=== PATIENT | female | born 1945 | race Caucasian/White ===

== ENCOUNTER → 2017-02-13 | Outpatient (CLI) | payer MEDICARE, BC ==
[~2017-02-13] MED LIST: AMLOD-VALSA-HC1 EAC4 PO; ASPIRIN81 M2 PO; CALCIUM CITRAT1 EAC6 PO; CLOPIDOGREL75 MG PO; COREG6.25 M1; CYMBALTA PO; FUROSEMIDE40 MG PO; HYALURONIC ACI1 EACH PO; KRILL OIL 1,001 EACH PO; LANTUS100 UNITS/; PIOGLITAZONE30 MG PO; ROSUVASTATIN CA40 MG; TRULICITY0.75 MG/0.; VITAMIN D250000 UNIT PO
--- NOTE | ~2017-02-13 | EKG ---
PATIENT: GEORGES ARGUETA UNIT #: [id number] Ventricular Rate: 81 BPM Atrial Rate: 81 BPM P-R Interval: 188 ms QRS Duration: 86 ms Q-T Interval: 388 ms QTC Calculation(Bezet): 450 ms P Wales: 46 degrees Calculated R Wales: 40 degrees Calculated T Wales: 10 degrees Diagnosis Line: Normal sinus rhythm Diagnosis Line: Cannot rule out Anteroseptal infarct , age Diagnosis Line: undetermined Diagnosis Line: Abnormal ECG Diagnosis Line: No previous ECGs available Diagnosis Line: Confirmed by ASAF PEREZ MD ([id number]) on Diagnosis Line: 02/14/2017 8:29:05 AM INTERPRETING MD: CHRIS FONSECA
[2017-02-13 10:37] LABS: HEMOGLOBIN 13.4 gm/dL (12.0-16.0); MEAN CELL VOLUME 86.9 FL (83-96); MEAN CORPUSCULAR HEMOGLOBIN 29.1 PG (28-34); MEAN CORPUSCULAR HGB CONC 33.5 g/dL (30-36); MEAN PLATELET VOLUME 8.6 FL (6.5-11.5); RED BLOOD COUNT 4.6 X10e (3.90-5.30); RED CELL DISTRIBUTION WIDTH 13.8 % (11.0-15.5); WHITE BLOOD COUNT 9.6 X10e3 (4.0-10.5)
[2017-02-13 11:14] LABS: BUN/CREATININE RATIO 21.66; CALCIUM SERUM 9.8 mg/dL (8.4-10.2); CREATININE SERUM 1.8 mg/dL (0.6-1.4); GLOM FILT RATE Estimated 28.2 mL/min (>60); POTASSIUM 3.3 mmol/L (3.5-5.1)
== END | disposition home or self-care (01) ==
LOC: EDSTATUS 09:00 → CAMB 09:00
PROVIDERS: Orthopaedic Surgery
DX: M19.071 Primary osteoarthritis, right ankle and foot (principal)
CPT/HCPCS: 36415; 80048; 85027; 93005

== ENCOUNTER 2017-03-06 05:40 | Inpatient (IN) | payer MEDICARE, BC ==
[~2017-03-06] VITALS: Ht 170.2 cm; Wt 106.4 kg
--- NOTE | ~2017-03-06 | HP ---
Unit #: [id number] #: [id number] Patient: GEORGES ARGUETA [id number] [address] [address] [id number] MR#: [id number] NAME: GEORGES ARGUETA ROOM: Age: Sex: F Admission Date: 03/06/2017 : 1945 Attending Physician: Humphrey Redd M.D. Primary Care Physician: Damari Lee HISTORY AND PHYSICAL DATE OF ANTICIPATED ADMISSION/PROCEDURE March 06, 2017 CHIEF COMPLAINT Right ankle pain. HISTORY OF PRESENT ILLNESS The patient is a 71-year-old female with increasing right ankle pain over the past five years. She has undergone previous right ankle cyst removal done elsewhere. The patient has been treated with conservative care to include an AFO brace. Her radiographs show significant joint space loss with end-stage arthritis. She is therefore admitted for right ankle fusion using an anterior plate and proximal tibial bone graft. PAST MEDICAL HISTORY 1. Insulin-dependent diabetes. 2. Obesity. 3. Hyperlipidemia. 4. Hypertension. 5. Sleep apnea. 6. Arthritis. 7. Cataracts. 8. Coronary artery disease. PAST SURGICAL HISTORY 1. Right ankle cyst excision. 2. Coronary artery stent. 3. Hysterectomy. 4. Tonsillectomy. 5. Cataract surgery. HOME MEDICATIONS 1. Insulin. 2. Carvedilol. 3. Lasix. 4. Rosuvastatin. 5. Vitamin D. 6. Plavix. 7. Duloxetine. 8. Trulicity. 9. Flaxseed oil. 10. Hyaluronic acid. 11. Amlodipine. 12. Hydrochlorothiazide. Unit #: [id number] #: [id number] Patient: GEORGES ARGUETA ALLERGIES None. SOCIAL HISTORY The patient quit smoking 25 years ago. She has an occasional social alcoholic drink. She denies illicit drug use. She is . PHYSICAL EXAMINATION GENERAL: This is an obese female in no acute distress. HEENT: Pharynx is clear. NECK: Supple without masses. HEART: Regular sinus rhythm without murmurs or gallops. LUNGS: Clear. ABDOMEN: Soft and nontender without masses or organomegaly. EXTREMITIES: Evaluation of the right ankle shows an anteromedial right ankle scar measuring 4 cm. The rear foot is in 10 degrees of varus. Right ankle dorsiflexion is -5 degrees and plantar flexion 30 degrees. Subtalar motion is 5 degrees inversion and eversion. First MTP joint motion is dorsiflexion 40 degrees and plantar flexion is 15 degrees. Pulses are intact. Sensation is normal. Motor exam is normal. The patient has tenderness over the anterior aspect of the tibiotalar joint. DIAGNOSTIC STUDIES IMAGING: Standing x-rays of the right ankle show tibiotalar varus with end-stage arthritis and complete joint space loss. ADMITTING DIAGNOSIS Right ankle arthritis with varus deformity. PLAN The patient will undergo right arthroscopic ankle procedure using an anterior plate and proximal tibial bone graft. This procedure was described in detail along with the risks of bleeding, infection, nerve damage, need for further surgery in the future, nonunion, malunion, prolonged recovery time, deep venous thrombosis, pulmonary embolism, anesthetic complications, and development of arthritis in adjacent joints. She understands the above risks and agrees to proceed. Dictated by Tami Lima/lacie TD: 03/05/2017 20:26 JOB #: [id number] HISTORY AND PHYSICAL Page 1 of 1 X Blanca Redd MD X HISTORY AND PHYSICAL
--- NOTE | ~2017-03-06 | CR151 ---
[facility] A Service of [facility] RADIOLOGY TEXT RESULTS PATIENT: GEORGES ARGUETA LOCATION: C4B 453-01 : [birth year] UNIT #: [id number] AGE: [address]: Blanca Redd MD SEX: F ORDER DR: [id number] [facility] [address] [place], [place] [address] [id number] MR#: [id number] Acc #: [id number] NAME: GEORGES ARGUETA : 1945 SEX: F STUDY DATE/TIME: 03/07/2017 14:06 UNIT: [facility] ROOM: [facility] STUDY DESCRIPTION: CR Hip Min 2 Views Rt Attending Physician: Humphrey Redd M.D. Ordering Physician: Humphrey Redd M.D. Primary Care Physician: Damari Lee MEDICAL IMAGING REPORT This report is preliminary unless electronic signature is present EXAM Right hip and pelvis, 03/07. INDICATIONS Right hip pain after falling today. FINDINGS AP pelvis was obtained in addition to a frog-leg right hip. There is no fracture or dislocation. Femoral heads are normal without evidence of osteonecrosis. IMPRESSION Negative pelvis and right hip. Dictated by... Raman Molina Jr., M.D. THIS IS AN ELECTRONICALLY VERIFIED REPORT Raman Molina Jr., M.D. at 03/09/2017 2:28 PM LIZBETH/daniel TD: 03/07/2017 21:05 JOB #: [id number] MEDICAL IMAGING REPORT Page 1 of 1 COPY
--- NOTE | ~2017-03-06 | DS ---
Unit #: [id number] #: [id number] Patient: GEORGES ARGUETA [id number] [address] [place], [place] [address] [id number] I MR#: [id number] NAME: GEORGES ARGUETA ROOM: 453 Age: 71 Sex: F Admission Date: 03/06/2017 : 1945 Discharge Date: 03/08/2017 Attending Physician: Humphrey Redd M.D. Primary Care Physician: Damari Lee DISCHARGE SUMMARY CHIEF COMPLAINT Right ankle pain. HISTORY OF PRESENT ILLNESS This patient is a 71-year-old female with worsening right ankle pain over the past 5 years. She has failed conservative care with bracing. She has pain with activities of daily living. She is, therefore, admitted for ankle fusion. HOSPITAL COURSE The patient was taken to the operating room on the date of admission where she underwent right ankle fusion through an anterior longitudinal incision using an anterior plate and proximal tibial bone graft. She had a stable postoperative course. She did have a fall on her first postoperative day, but radiographs of her right hip were normal. She was seen by physical therapy on a daily basis and instructed on how to remain nonweightbearing on her affected side. Her dressing remained clean, dry and intact and was left intact. She was ready for discharge on the second postoperative day. The patient will be sent to rehab because she does not have help at home, and because of her obesity, she has difficulty remaining nonweightbearing on her right leg. FINAL DIAGNOSIS Right ankle degenerative arthritis. DISPOSITION/RECOMMENDATIONS 1. The patient is discharged to rehab for further physical and occupational therapy. She will remain strictly nonweightbearing on her affected right leg for a total of 3 months. Keep the dressing clean, dry and intact. Do not change the dressing unless instructed by Dr. Redd. If there is a problem with a dressing, please call Dr. Redd at for instructions. Continue ice and elevation of the right lower extremity. 2. Discharge medications: Cymbalta 60 mg p.o. q.h.s., pioglitazone 30 mg p.o. daily, carvedilol 6.25 mg p.o. b.i.d., amlodipine/valsartan/Hydrochlorothiazide 10/320/25 mg 1 p.o. daily, rosuvastatin 40 mg p.o. q.h.s., Trulicity 0.25 mg injected every , glargine insulin 80 units subcutaneously b.i.d., aspirin 81 mg p.o. daily, hyaluronic acid 40 mg capsule 100 mg p.o. daily, Plavix 75 mg p.o. daily, calcium citrate, vitamin D 1 p.o. daily, krill oil 1,000 mg softgel 1 p.o. daily, vitamin D2 - 50,000 units p.o. twice a week, Percocet 5/325 mg 1 or 2 p.o. q.4 hours p.r.n. pain. 3. Follow up in the office with Dr. Redd in 10-14 days for Unit #: [id number] #: [id number] Patient: BEAVEN,GEORGES dressing change, suture removal and application of a cast. Dictated by.Tami Ledesma/kenna TD: 03/08/2017 12:56 JOB #: [id number] DISCHARGE SUMMARY Page 1 of 1 X Blanca Redd MD X DISCHARGE SUMMARY
--- NOTE | ~2017-03-06 | CO ---
Unit #: [id number] #: [id number] Patient: GEORGES ARGUETA [id number] [address] [place], [place] [address] [id number] I MR#: [id number] NAME: GEORGES ARGUETA ROOM: 453 Age: 71 Sex: F Admission Date: 03/06/2017 : 1945 Attending Physician: Humphrey Redd M.D. Primary Care Physician: Damari Lee CONSULTATION REPORT REASON FOR CONSULTATION Medical management. HISTORY OF PRESENT ILLNESS The patient is a 71-year-old female with history of right ankle arthritis, failed conservative management and underwent right ankle fusion earlier today. The medicine consult has been placed for management of medical problems, including diabetes. The patient has history of diabetes for 10 years and has been on insulin for the last 5 years. The patient's hemoglobin A1C is 7.1, which was done last Sunday. The patient's blood sugars are under control at home. The patient's blood sugars were low this morning, as the patient was NPO. Then, the patient's blood sugar is now coming up to the 90s. Denies any fever. Denies any chills. Denies any nausea, vomiting. PAST MEDICAL HISTORY History of diabetes mellitus type 2, obesity, hyperlipidemia, hypertension, sleep apnea, arthritis, cataracts, coronary artery disease. PAST SURGICAL HISTORY Right ankle cyst excision, right ankle fusion, coronary artery stent, hysterectomy, tonsillectomy, cataract surgery. HOME MEDICATIONS The patient is on Crestor, amlodipine, valsartan, Hydrochlorothiazide, Lantus, Trulicity, pioglitazone, Coreg, vitamin, Cymbalta, Plavix, furosemide, hyaluronic acid, calcium and aspirin. ALLERGIES None. SOCIAL HISTORY The patient quit smoking 25 years ago. She has occasional social alcohol drink. She denies any illicit drug abuse. REVIEW OF SYSTEMS Negative for chest pain. Negative for nausea or vomiting. Negative for abdominal pain. Negative for headaches. Positive for ankle pain. Other systems have been reviewed, and all other systems were negative. FAMILY HISTORY Reviewed and none. PHYSICAL EXAMINATION Unit #: [id number] #: [id number] Patient: GEORGES ARGUETA GENERAL: The patient is lying in the bed, not in acute distress. VITALS: Temperature is afebrile, pulse 81, respiratory rate 15, blood pressure 111/70. HEENT: Head atraumatic, normocephalic. Pupils are equally round reactive to light and accommodation. Extraocular movements are intact. NECK: Supple. LUNGS: Decreased air entry at the bases. HEART: Regular rate and rhythm. ABDOMEN: Soft. Positive bowel sounds. EXTREMITIES: Status post ankle fusion on the right extremity. NEUROLOGIC: Alert, awake, oriented. No gross focal motor deficit. DIAGNOSTIC STUDIES LAB DATA: Sodium 138, potassium 3.2, chloride 98, bicarb 30, glucose 64, BUN 43, creatinine 1.6, calcium 9.6. Glucose is 91, 81 and 60. ASSESSMENT 1. Right ankle arthritis status post right ankle fusion. 2. Diabetes mellitus. 3. Acute kidney injury. PLAN Plan to continue the postop period with orthopedic. Continue the sliding scale and Accu-Cheks. DVT prophylaxis. Hold Hydrochlorothiazide for the acute kidney injury and hold oral hypoglycemic agents. Continue with low-dose sliding scale and Accu-Cheks. Further recommendations will follow. Dictated by... Tami Carter/kenna TD: 03/07/2017 09:42 JOB #: [id number] CONSULTATION REPORT Page 1 of 1 X LAUREL EVANS MD X CONSULTATION REPORT
--- NOTE | ~2017-03-06 | OR ---
Unit #: [id number] #: [id number] Patient: GEORGES ARGUETA [id number] [address] [place], [place] [address] [id number] I MR#: [id number] NAME: GEORGES ARGUETA ROOM: [facility] Date of Procedure: 03/06/2017 Admission Date: 03/06/2017 Surgeon: Humphrey Redd M.D. : 1945 Attending Physician: Humphrey Redd M.D. Primary Care Physician: Damari Lee OPERATIVE REPORT PROCEDURE PERFORMED Right ankle degenerative arthritis. POSTOPERATIVE DIAGNOSIS Right ankle degenerative arthritis. PROCEDURES PERFORMED 1. Right ankle fusion (59740). 2. Right proximal tibial bone graft (71417). ASSISTANTS Cristine and Hermelinda. ANESTHESIA General and popliteal saphenous block. INDICATIONS FOR SURGERY This 71-year-old female with insulin-dependent diabetes, has end-stage right ankle arthritis, which has been unresponsive to conservative care. She is therefore to undergo ankle fusion. DESCRIPTION OF PROCEDURE The patient underwent right lower extremity popliteal saphenous block. She was taken to the operating room and placed in supine position and general anesthetic was induced. The right lower extremity was identified as the correct operative extremity during the time-out procedure. The IV antibiotic protocol was followed. The right leg was then prepped and draped in the usual sterile fashion. The leg was exsanguinated and the thigh tourniquet inflated to 300 mmHg. An anterior longitudinal incision was made over the ankle incorporating the previous medial longitudinal incision over the anteromedial ankle. The incision measured approximately 10 cm. Subcutaneous tissue was carefully divided. The superficial peroneal nerve was identified and preserved. The extensor retinaculum was opened. The interval between the extensor hallucis and anterior tibial tendons was opened. The neurovascular bundle was retracted laterally. The joint was exposed subperiosteally. A large 1 cm diameter loose body was removed. The joint was distracted with a laminar fingerprint technician. The power osteotome, curved curettes, and rongeurs were utilized to remove the articular cartilage from both sides of the tibiotalar joint and talofibular joint. The underlying subchondral bone was feathered with the power osteotome. Unit #: [id number] #: [id number] Patient: GEORGES ARGUETA A 6 cm proximal lateral tibial incision was made over Gerdy tubercle. The subcutaneous tissue was divided. The extensor fascia was divided and the lateral proximal tibial cortex was exposed subperiosteally. A 1 x 2 cm cortical window was made with the power osteotome and a large curved curette was utilized to harvest a large amount of cancellous bone from the proximal tibia. This was then packed into the tibiotalar fusion site. The proximal tibial donor site was irrigated and then backfilled with allograft cancellous bone chips. The cortical window was replaced. The extensor fascia was closed with 0 Vicryl [id number] sutures. The ankle joint was then held in neutral dorsiflexion and mild heel valgus. It was fixated with an OrthoHelix 7.0 mm diameter cannulated screw placed from proximal medial to distal lateral. The [facility] anterior ankle fusion plate was then applied anteriorly and fixated with multiple 4.5 mm diameter and 5.5 mm diameter screws. Excellent fixation was achieved. An intraoperative C-arm fluoroscopy documented satisfactory joint position and screw position. The wounds were copiously irrigated. The anterior ankle capsule was closed with 2-0 Vicryl [id number] sutures. The extensor retinaculum was closed with 2-0 Vicryl. Subcutaneous tissue was closed with 3-0 Vicryl. Skin was closed with 3-0 nylon horizontal mattress sutures. Xeroform gauze, dressing, sponges, cast padding, and a posterior fiberglass splint were then applied. The patient was then transported to the recovery room in stable condition. ESTIMATED BLOOD LOSS 50 mL. COMPLICATIONS None. SPECIMENS None. TOURNIQUET TIME 62 minutes. Dictated byTami Quiroz/ermias TD: 03/06/2017 11:18 JOB #: [id number] OPERATIVE REPORT Page 1 of 1 X Blanca Redd MD X PROCEDURE OPERATIVE NOTE
[2017-03-06 07:01] LABS: BUN/CREATININE RATIO 26.87; CALCIUM SERUM 9.6 mg/dL (8.4-10.2); CREATININE SERUM 1.6 mg/dL (0.6-1.4); GLOM FILT RATE Estimated 32.6 mL/min (>60); POTASSIUM 3.2 mmol/L (3.5-5.1)
[2017-03-07 03:12] LABS: HEMATOCRIT 33.1 % (35.0-45.0); HEMOGLOBIN 11.4 gm/dL (12.0-16.0); MEAN CELL VOLUME 87.4 FL (83-96); MEAN CORPUSCULAR HGB CONC 34.3 g/dL (30-36); MEAN PLATELET VOLUME 8.6 FL (6.5-11.5); RED BLOOD COUNT 3.79 X10e (3.90-5.30); RED CELL DISTRIBUTION WIDTH 13.7 % (11.0-15.5); WHITE BLOOD COUNT 9.8 X10e3 (4.0-10.5)
[2017-03-07 03:33] LABS: BUN/CREATININE RATIO 19.28; CALCIUM SERUM 8.9 mg/dL (8.4-10.2); CREATININE SERUM 1.4 mg/dL (0.6-1.4); GLOM FILT RATE Estimated 38.2 mL/min (>60)
[2017-03-08 04:36] LABS: CALCIUM SERUM 9.1 mg/dL (8.4-10.2); CREATININE SERUM 1.3 mg/dL (0.6-1.4); GLOM FILT RATE Estimated 41.8 mL/min (>60); POTASSIUM 3.6 mmol/L (3.5-5.1)
== END 2017-03-09 16:00 | DRG 493 ==
LOC: CSUR 05:40 → CPACUOF 09:00 → C4B 09:00 → CSUR 09:58 → CPACUOF 09:58 → C4B 11:14 → CPACUOF 11:14 → C4B 03-09 16:00
PROVIDERS: Internal Medicine; Nurse Practitioner; Orthopaedic Surgery
PROC: 0QBG0ZZ Excision of Right Tibia, Open Approach (ICD-10-PCS; 2017-03-06)
PROC: 0SGF07Z Fusion of Right Ankle Joint with Autologous Tissue Substitute, Open Approach (ICD-10-PCS; principal; 2017-03-06 07:30)
PROC: 0SGF04Z Fusion of Right Ankle Joint with Internal Fixation Device, Open Approach (ICD-10-PCS; 2017-03-06 07:30)
DX: M19.071 Primary osteoarthritis, right ankle and foot (principal); N17.9 Acute kidney failure, unspecified; M21.171 Varus deformity, not elsewhere classified, right ankle; E66.9 Obesity, unspecified; Z68.36 Body mass index [BMI] 36.0-36.9, adult; E11.9 Type 2 diabetes mellitus without complications; Z79.4 Long term (current) use of insulin; E78.5 Hyperlipidemia, unspecified; I10 Essential (primary) hypertension; G47.30 Sleep apnea, unspecified; I25.10 Atherosclerotic heart disease of native coronary artery without angina pectoris; Z95.5 Presence of coronary angioplasty implant and graft; Z87.891 Personal history of nicotine dependence; Z90.710 Acquired absence of both cervix and uterus
CPT/HCPCS: 73502; 80048; 82947; 83735; 85027; 94760; 94762; 97110; 97161; 97530; C1713; G8978-GP; G8979-GP; J0690; J1815; J2250; J2270; J2405; J2795; J3010